=== PATIENT | female | born 1950 | race Caucasian/White ===

== ENCOUNTER 2017-10-27 22:14 | Emergency (ER) | payer MEDICARE ==
[~2017-10-27] VITALS: Ht 157.5 cm; Wt 71.4 kg
[~2017-10-27 22:14] MED LIST: ASPI81 PO; MACR100C PO; MECL25 PO; OYST500T77 PO; PRIN10TA PO; SIMV80TA PO; TAB-TAB PO; ZOFR4TAB3 SL
[2017-10-27 22:16] VITALS: BP 175/77; PULSE 71; RESP 16; TEMP 97.3; O2SAT 97
[2017-10-27] MEDS ORDERED: ASPI81CH7 CHEW (22:27)
[2017-10-27] MEDS ORDERED: LISI-515 PO (22:27)
[2017-10-27] MEDS ORDERED: SIMV40TA PO (22:27)
--- NOTE | 2017-10-27 23:06 | PD ---
HPI Chief Complaint: Injury Time Seen by Provider: 22:46 Travel History International Travel<30 days: No Contact w/Intl Traveler<30days: No Traveled to known affect area: No History of Present Illness HPI 67 years old female complains of left foot pain. Patient struck her left foot against an object about a week ago. Patient states that she had discoloration of the left third toe and distal aspect the left foot since then. Patient started having increasing pain and swelling at the base the left big toe since yesterday. Patient denies any new injury since the initial injury a week ago. Patient denies any fever chills. Patient denies any history of gout. Patient states that pain is sharp pain localized to the base of the left big toe. Patient denies any pain radiation. On a scale of 1-10 the pain is a 5. PFSH Past Medical History Blood Disorders: No Cancer: No Cardiovascular Problems: Yes (htn) High Cholesterol: Yes Chemotherapy: No Cerebrovascular Accident: Yes (TIA) Diminished Hearing: No Endocrine: No Genitourinary: No Hypertension: Yes Immune Disorder: No Musculoskeletal: No Neurologic: No Psychiatric: No Reproductive: No Respiratory: No Immunizations Current: Yes Radiation Therapy: No Ulcer: Yes (ULCERATIVE COLITIS) Tetanus Vaccination: Unknown Influenza Vaccination: Yes ?: Not Menopausal: Yes Past Surgical History Surgical History: No Previous Surgery Social History Alcohol Use: Yes (COUPLE TIMES PER MONTH) Tobacco Use: No Substance Use: No Allergies-Medications (Allergen,Severity, Reaction): Coded Allergies: dipyridamole (Unverified Adverse Reaction, Severe, HEADACHE, 10/27/17) Reported Meds & Prescriptions Reported Meds & Active Scripts Active Reported Lisinopril 20 Mg Tab 20 Mg PO DAILY Simvastatin 40 Mg Tab 40 Mg PO HS Aspirin Children's (Aspirin) 81 Mg Chew 81 Mg CHEW DAILY Review of Systems General / Constitutional: No: Fever Eyes: No: Visual changes HENT: No: Headaches Cardiovascular: No: Chest Pain or Discomfort Respiratory: No: Shortness of Breath Gastrointestinal: No: Abdominal Pain Genitourinary: No: Dysuria Musculoskeletal: Positive: Pain Skin: No Rash Neurologic: No: Weakness Psychiatric: No: Depression Endocrine: No: Polydipsia Hematologic/Lymphatic: No: Easy Bruising Physical Exam Narrative GENERAL: Well-nourished, well-developed patient. SKIN: Focused skin assessment warm/dry. HEAD: Normocephalic. EYES: No scleral icterus. No injection or drainage. NECK: Supple, trachea midline. No JVD or lymphadenopathy. CARDIOVASCULAR: Regular rate and rhythm without murmurs, gallops, or rubs. RESPIRATORY: Breath sounds equal bilaterally. No accessory muscle use. GASTROINTESTINAL: Abdomen soft, non-tender, nondistended. MUSCULOSKELETAL: No cyanosis, or edema. BACK: Nontender without obvious deformity. No CVA tenderness. Patient has ecchymosis on left third toe and mild soft tissue swelling and ecchymosis distal aspect the left foot. Patient had mild soft tissue swelling tenderness at the base of left big toe. Data Data Last Documented VS Vital Signs Date Time Temp Pulse Resp B/P (MAP) Pulse Ox O2 Delivery O2 Flow Rate FiO2 10/27/17 22:28 (109) 10/27/17 22:16 97.3 71 16 97 Orders Orders Foot, Complete ([id number]) (10/27/17 22:53) Ed Discharge Order (10/27/17 23:53) Splint Or Brace Apply/Monitor (10/27/17 23:53) [facility] Medical Decision Making Medical Screen Exam Complete: Yes Emergency Medical Condition: Yes Interpretation(s) Last Impressions Foot X-Ray 10/27/17 [id number] Signed Impressions: Service Date/Time: October 22:56 - CONCLUSION: Chronic findings as above. No fracture or subluxation of the left foot. Rubin Mata MD Differential Diagnosis Differential diagnosis including contusion, fracture, dislocation. Narrative Course 67 years old female with left foot injury. Diagnosis Primary Impression: Gouty arthritis of toe of left foot Additional Impression: Contusion of left foot Qualified Codes: S90.32XA - Contusion of left foot, initial encounter Patient Instructions: General Instructions Additional Instructions: Take medication as directed. Keep left foot elevated. Follow-up with orthopedist. Return if worse. Med/Other Pt SpecificInfo: Prescription(s) given Scripts Ranitidine (Zantac) 300 Mg Tab 300 MG PO DAILY, #14 TAB 0 Refills Prov: Stanislaw Gutierrez MD 10/27/17 Meloxicam (Mobic) 15 Mg Tab 15 MG PO DAILY for Pain, #14 TAB 0 Refills Prov: Stanislaw Gutierrez MD 10/27/17 Prednisone (Prednisone) 20 Mg Tab 20 MG PO DAILY, #7 TAB 0 Refills Prov: Stanislaw Gutierrez MD 10/27/17 Disposition: 01 DISCHARGE HOME Condition: Stable Stanislaw Gutierrez MD Oct 27, 2017 23:06
--- NOTE | 2017-10-27 23:26 | RADRPT ---
EXAM DATE/TIME: 10/27/2017 22:56 [facility] COMPARISON: No previous studies available for comparison. INDICATIONS : Left foot pain, bruising for 3 days after hitting foot while walking MEDICAL HISTORY : None. SURGICAL HISTORY : None. ENCOUNTER: Initial ACUITY: 3 days PAIN SCORE: 8/10 LOCATION: Left medial surface of foot FINDINGS: Bones of the left foot are intact and normally aligned. 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 Large heel spur. Also a large os peroneum. CONCLUSION: Chronic findings as above. No fracture or subluxation of the left foot. Rubin Mata MD on October 27, 2017 at 23:23 Board Certified Radiologist. This report was verified electronically.
[2017-10-27] MEDS ORDERED: MOBI15TA PO (23:57)
[2017-10-27] MEDS ORDERED: PRED20 PO (23:57)
[2017-10-27] MEDS ORDERED: ZANT300T PO (23:57)
[2017-10-28] MEDS ORDERED: DEXAMETHASONE SOD PHOS 4 MG/ML VIAL IM ONE
[2017-10-28] MEDS ORDERED: KETOROLAC TROMETHAMINE 30 MG/ML (IVP) VIAL IV PUSH ONE
[2017-10-28 00:01] VITALS: BP 165/78; PULSE 71; RESP 18; O2SAT 97
== END 2017-10-28 00:07 | disposition home or self-care (01) ==
LOC: PHEFT 22:14
DX: M10.9 Gout, unspecified (principal); S90.32XA Contusion of left foot, initial encounter; I10 Essential (primary) hypertension; E78.00 Pure hypercholesterolemia, unspecified; W22.8XXA Striking against or struck by other objects, initial encounter; Z86.73 Personal history of transient ischemic attack (TIA), and cerebral infarction without residual deficits; Z88.8 Allergy status to other drugs, medicaments and biological substances; Z79.82 Long term (current) use of aspirin; Z79.899 Other long term (current) drug therapy
CPT/HCPCS: 73630; 99283; L3260